=== PATIENT | male | born 1950 | race African-American/Black ===

== ENCOUNTER 2021-12-15 10:46 | Outpatient (CLI) | payer MEDICARE, SELFPAY ==
[2021-12-15 11:58] LABS: Appearance Urine Slightly Cloudy (Clear); Bilirubin Urine Negative (Negative); Blood Urine Negative (Negative); Color Urine Yellow (Yellow); Glucose Urine UA Negative (Negative); Ketones Urine Negative (Negative); Leukocyte Esterase Ur Negative LEU/UL (NEGATIVE); Nitrate Urine Negative (Negative); Protein Urine Negative (Negative); pH Urine 6.5 (5.0-9.0)
[2021-12-15 12:04] LABS: Mucus Urine Rare /lpf; RBC Urine 0-2 /hpf (0-2); WBC Urine 0-3 /hpf (0-3)
[2021-12-15 12:06] LABS: Add Urine Microscopic? YES
== END 2021-12-15 10:47 | disposition home or self-care (01) ==
PROVIDERS: PCP Family Medicine Sports Medicine; Visit Provider Family Medicine Sports Medicine
DX: E78.5 Hyperlipidemia, unspecified (principal); I10 Essential (primary) hypertension; G89.4 Chronic pain syndrome; R53.83 Other fatigue; Z00.00 Encounter for general adult medical examination without abnormal findings
CPT/HCPCS: 81001

== ENCOUNTER 2023-05-17 13:36 | Outpatient (CLI) | payer MEDICARE, SELFPAY ==
[2023-05-17 14:53] LABS: Basophils Percent Auto 0.2 % (0.2-1.2); Eosinophils Absolute Auto 0.1 K/mm3 (0-0.3); Eosinophils Percent Auto 0.6 % (0-4.4); Hematocrit 24.5 % (42.0-52.0); Hemoglobin 7.8 g/dL (14.0-18.0); Immature Granulocyte Absolute 0.04 K/mm3 (0.00-0.031); Immature Granulocyte Percent A 0.5 % (0-0.5); Lymphocytes Absolute Auto 1.54 K/mm3 (0.9-3.2); Lymphocytes Percent Auto 17.7 % (18.3-44.2); Mean Corpuscular HGB Conc 31.8 g/dl (32-36); Mean Corpuscular Hemoglobin 27.9 pg (26-34); Mean Corpuscular Volume 87.5 fl (80-100); Mean Platelet Volume 9.7 fl (7.4-10.4); Monocytes Absolute Auto 0.8 K/mm3 (0.1-0.6); Neutrophils Absolute Auto 6.3 K/mm3 (1.3-6.7); Platelet Count Result 413 k/mm3 (150-375); Red Cell Distribution Width 14.3 % (11.5-14.5); White Blood Count 8.7 K/mm3 (4.5-10.0)
[2023-05-17 16:49] LABS: Vitamin D 25 Hydroxy 37.1 ng/mL
[2023-05-17 17:12] LABS: Alanine Aminotransferase 18 U/L (6-50); Albumin Level 3.4 g/dL (3.5-5.1); Alkaline Phosphatase 124 U/L (38-126); Anion Gap 3 mmol/L (8-16); Aspartate Amino Transferase 40 U/L (17-59); Bilirubin,Total 0.5 mg/dL (0.2-1.3); Blood Urea Nitrogen 36 mg/dL (9-20); Calcium 9.1 mg/dL (8.4-10.2); Carbon Dioxide 25 mmol/L (22-30); Chloride 108 mmol/L (98-107); Cholesterol 125 mg/dL (0-200); Estimated Glomerular Filt Rate 45; Glucose 93 mg/dL (65-110); HDL Direct 18 mg/dL; Potassium 4.5 mmol/L (3.4-5.0); Sodium 136 mmol/L (137-145); Triglycerides 123 mg/dL (<150)
[2023-05-17 17:28] LABS: LDL Cholesterol Direct 78 mg/dL
[2023-05-17 17:48] LABS: Thyroid Stimulating Hormone 0.511 uIU/mL (0.465-4.680)
[2023-05-17 18:24] LABS: Folic Acid > 20.0 ng/mL (2.76->20)
== END 2023-05-17 13:37 | disposition home or self-care (01) ==
LOC: ANHLAB 13:57
PROVIDERS: PCP Family Medicine Sports Medicine; Visit Provider Nurse Practitioner
DX: E78.5 Hyperlipidemia, unspecified (principal); D64.9 Anemia, unspecified; I10 Essential (primary) hypertension; N18.9 Chronic kidney disease, unspecified; M62.838 Other muscle spasm; R41.0 Disorientation, unspecified; R44.3 Hallucinations, unspecified; G89.29 Other chronic pain; R79.9 Abnormal finding of blood chemistry, unspecified; R53.83 Other fatigue; Z13.21 Encounter for screening for nutritional disorder; E55.9 Vitamin D deficiency, unspecified
CPT/HCPCS: 36415; 36591; 80053; 80061; 82306; 82607; 82746; 83036; 84443; 85025